=== PATIENT | male | born 1960 | race Caucasian/White ===

== ENCOUNTER 2018-06-14 16:00 | Emergency (ER) | payer BC, MEDICAID ==
[2018-06-14 16:22] VITALS: BP 139/80
[2018-06-14] MEDS ORDERED: Bacitracin Oint 1 GM U/D Packet TOP ONE (16:38)
[2018-06-14] MEDS ORDERED: Lidocaine 1% 20 ML MDV INJECT ONE (16:38)
--- NOTE | 2018-06-14 18:40 | EDM.PDOC ---
ED HPI GENERAL MEDICAL PROBLEM - General Chief Complaint: Laceration Stated Complaint: CUT ON RT ARM Time Seen by Provider: 06/14/18 17:00 Source of Information: Reports: Patient, Family History Limitations: Reports: No Limitations - History of Present Illness INITIAL COMMENTS - FREE TEXT/NARRATIVE: 57-year-old male fell and put his right arm through a broken window sustaining several large lacerations to his right arm. Onset: Sudden Duration: Hour(s): (Within the last hour) Location: Reports: Upper Extremity, Right Severity: Moderate Associated Symptoms: Reports: No Other Symptoms Left Arm Pain Score (Numeric/FACES): 5 Right Arm Pain Score (Numeric/FACES): 5 - Related Data Allergies Allergy/AdvReac Type Severity Reaction Status Date / Time No Known Allergies Allergy Verified 12/02/13 09:11 Home Meds: Home Meds NK [No Known Home Meds] 04/06/15 [History] Past Medical History Other Cardiovascular History: history of - Infectious Disease History Infectious Disease History: Reports: Chicken Pox, Measles, Mumps Social & Family History - Tobacco Use Smoking Status *Q: Current Every Day Smoker Years of Tobacco use: 40 Packs/Tins Daily: 0.5 - Caffeine Use Caffeine Use: Reports: Coffee - Recreational Drug Use Recreational Drug Use: No ED ROS GENERAL - Review of Systems Review Of Systems: See Below Constitutional: Denies: Fever Cardiovascular: Denies: Chest Pain GI/Abdominal: Denies: Abdominal Pain, Nausea, Vomiting Musculoskeletal: Reports: No Symptoms Neurological: Denies: Paresthesia ED EXAM, SKIN/RASH Exam: See Below Exam Limited By: No Limitations General Appearance: Alert, No Apparent Distress Respiratory/Chest: No Respiratory Distress Extremities: Other (Remainder of exam is to the right arm. The patient has several large lacerations into the subcutaneous tissue. The first is a curved laceration on the extensor surface of the forearm measuring 20 cm. The second laceration is across the olecranon area of the elbow and measures 10 cm. He also has several small superficial scratches and lacerations that do not need repair.) Course - Vital Signs Last Recorded V/S: Last Vital Signs Temp 97.9 F 06/14/18 16:22 Pulse 83 06/14/18 16:22 Resp 16 06/14/18 16:22 BP 139/80 06/14/18 16:22 Pulse Ox 97 06/14/18 16:22 - Orders/Labs/Meds Meds: Medications Discontinued Medications Generic Name Dose Route Start Last Admin Trade Name Barbi PRN Reason Stop Dose Admin Bacitracin 1 dose 06/14/18 16:38 06/14/18 17:41 Bacitracin Oint 1 Gm TOP 06/14/18 16:39 1 dose ONETIME ONE Administration Lidocaine HCl 20 ml 06/14/18 16:38 06/14/18 17:41 Xylocaine 1% INJECT 06/14/18 16:39 20 ml ONETIME ONE Administration - Re-Assessments/Exams Free Text/Narrative Re-Assessment/Exam: 06/15/18 10:28 The wounds were anesthetized with 1% lidocaine, cleansed thoroughly with saline and Hibiclens and explored. No foreign bodies were found, there was no significant tissue, nerve or vascular involvement in the lacerations. Distal CMS was normal. The 20 cm laceration was closed with 20 4-0 Ethilon sutures. The smaller laceration was somewhat deeper, so horizontal mattress sutures were used, a total of 14. Topical bacitracin and a pressure dressing was applied to the area which should be left on for the rest of today. I recommended he recheck the lacerations in 3 days, I also put him on cephalexin 500 mg 3 times a day. He is going to take anti-inflammatories for pain control. Departure - Departure Time of Disposition: 18:57 Disposition: Home, Self-Care 01 Condition: Good Clinical Impression: Laceration of arm, right, multiple sites Qualifiers: Encounter type: initial encounter Qualified Code(s): S41.111A - Laceration without foreign body of right upper arm, initial encounter - Discharge Information Instructions: Laceration Care, Adult, [id number] Referrals: Bertin Boss MD [Primary Care Provider] - Forms: ED Department Discharge Care Plan Goals: Keep wounds covered and clean while healing. Take antibiotic 3 times a day as prescribed, and gentle pressure to the wounds would be beneficial. Sutures can be removed in 12 days. Return sooner if concerns of infection or not healing satisfactorily.
== END 2018-06-14 18:45 | disposition home or self-care (01) ==
LOC: JP.ED 16:00
DX: S41.111A Laceration without foreign body of right upper arm, initial encounter (principal); W25.XXXA Contact with sharp glass, initial encounter
CPT/HCPCS: 12006; 99283-25